=== PATIENT | female | born 1965 | race Caucasian/White ===

== ENCOUNTER 2022-03-26 20:55 | Inpatient (IN) | payer OTHER ==
[2022-03-26] MEDS ORDERED: SODIUM CHLORIDE 1,000 ML IV ONE (21:29)
[2022-03-26] MEDS ORDERED: FAMOTIDINE 20 MG/50 ML IVPB 20 MG in PREMIX 50 IVPB ONE (21:29)
[2022-03-26] MEDS ORDERED: ONDANSETRON 4 MG/2 ML VIAL ONE (21:29)
[2022-03-26] MEDS ORDERED: morphine CARPU-JECT 4 MG/1 ML DISP.SYRIN IVPUSH ONE ×2 (21:29→23:36)
[2022-03-26] MEDS ORDERED: ONDANSETRON 4 MG/2 ML VIAL IVPB ONE (21:29)
[2022-03-26] MEDS ORDERED: morphine SULFATE 4 MG/ML VIAL ONE ×2 (21:29→23:38)
[2022-03-26 21:32] LABS: HEMATOCRIT 41.3 % (32.4-45.2); MCH 27.9 pg (25.7-33.7); MCHC 33.9 g/dl (32.0-36.0); MEAN CELL VOLUME 82.4 fl (80-96); MEAN PLT VOLUME 8.5 fl (7.5-11.1); PLATELET COUNT 261.1 10^3/uL (134-434); RBC 5.01 10^6/uL (3.60-5.2); RDW 13.7 % (11.6-15.6); WHITE BLOOD COUNT 11.2 10^3/uL (4.0-10.8)
[2022-03-26] MEDS ORDERED: FAMOTIDINE 20 MG/50 ML IVPB 20 MG/50 ML MG IVPB ONE (21:38)
[2022-03-26 21:44] LABS: BILIRUBIN,TOTAL 0.7 mg/dl (0.2-1); CALCIUM 9.1 mg/dl (8.5-10); CREATININE 0.9 mg/dl (0.55-1.3); TOT PROT 6.6 g/dl (6.4-8.2)
[2022-03-26 21:48] LABS: PLATELET ESTIMATE ADEQUATE
[2022-03-26] MEDS ORDERED: morphine CARPU-JECT 2 MG/1 ML DISP.SYRIN IVPUSH ONE (23:20)
[2022-03-27] MEDS ORDERED: ONDANSETRON 4 MG/2 ML VIAL IVPUSH PRN (01:43)
[2022-03-27] MEDS ORDERED: LACTATED RINGERS SOLUTION 1,000 ML IV SCH (01:45)
[2022-03-27 02:14] VITALS: BMI 34.6
[2022-03-27 08:10] LABS: CALCIUM 8.7 mg/dL (8.5-10.1)
[2022-03-27 08:11] LABS: BLOOD UREA NITROGEN 18.7 mg/dL (7-18)
[2022-03-27 08:14] LABS: CREATININE 0.8 mg/dL (0.55-1.3)
[2022-03-27] MEDS: morphine SULFATE 4 MG/ML VIAL IVPUSH PRN ×2 (08:16→21:12)
[2022-03-27 09:43] LABS: BASO % 0.1 % (0-2.0); EOS % 0.2 % (0-4.5); HEMATOCRIT 43.1 % (32.4-45.2); LYMPH % 13.3 % (8-40); MCH 26.8 pg (25.7-33.7); MCHC 32.6 g/dl (32.0-36.0); MEAN CELL VOLUME 82.2 fl (80-96); MEAN PLT VOLUME 8.7 fl (7.5-11.1); MONO % 4.6 % (3.8-10.2); NEUT % 81.8 % (42.8-82.8); PLATELET COUNT 263 10^3/uL (134-434); RBC 5.25 M/mm3 (3.60-5.2); RDW 13.4 % (11.6-15.6); WHITE BLOOD COUNT 14.1 K/mm3 (4.0-10.0)
[2022-03-28 08:44] LABS: CALCIUM 8.1 mg/dl (8.5-10); CREATININE 0.7 mg/dl (0.55-1.3); TOT PROT 5.3 g/dl (6.4-8.2)
[2022-03-28 09:17] VITALS: BP 114/59; PULSE 87; RESP 20; TEMP 98.5
[2022-03-28] MEDS ORDERED: PANTOPRAZOLE SODIUM 40 MG VIAL IVPUSH SCH (10:00)
[2022-03-28 10:22] LABS: BASO % 0.2 % (0-2.0); EOS % 0.8 % (0-4.5); HEMATOCRIT 42.4 % (32.4-45.2); HEMOGLOBIN 13.7 GM/dL (10.7-15.3); LYMPH % 12.4 % (8-40); MCH 26.6 pg (25.7-33.7); MCHC 32.4 g/dl (32.0-36.0); MEAN CELL VOLUME 82.1 fl (80-96); MEAN PLT VOLUME 8.9 fl (7.5-11.1); MONO % 5.5 % (3.8-10.2); NEUT % 81.1 % (42.8-82.8); PLATELET COUNT 261 10^3/uL (134-434); RBC 5.17 M/mm3 (3.60-5.2); RDW 13.6 % (11.6-15.6); WHITE BLOOD COUNT 12.7 K/mm3 (4.0-10.0)
[2022-03-28 11:08] LABS: EPITHELIAL CELLS FEW /hpf
== END 2022-03-28 10:45 | disposition left against medical advice (07) | DRG 204 ==
LOC: FER 20:55 → FM/S 03-27 01:29
PROVIDERS: ADMIT Internal Medicine; ATTEND Internal Medicine
DX: K85.90 Acute pancreatitis without necrosis or infection, unspecified (principal); M25.512 Pain in left shoulder; R11.0 Nausea; D72.829 Elevated white blood cell count, unspecified; E87.6 Hypokalemia
CPT/HCPCS: 0241U-QW; 36415; 74177-TC; 76705-TC; 80048; 80053; 81003; 81015; 82330; 83690; 83970; 84478; 84484; 85025; 85027; 87086; 93005; 99285-25; Q9967